=== PATIENT | female | born 1990 | race Caucasian/White ===

== ENCOUNTER → 2017-03-29 17:22 | Outpatient (CLI) | payer OTHER | END | disposition home or self-care (01) | LOC: RAD 17:22 | DX: M25.562 Pain in left knee (principal) ==

== ENCOUNTER 2017-07-16 07:38 | Outpatient (CLI) | payer OTHER | END 2017-07-16 07:42 | disposition home or self-care (01) | LOC: SONOGRAMA 07:38 → MAMO-SONO 07:45 | DX: Z01.419 Encounter for gynecological examination (general) (routine) without abnormal findings (principal); N64.4 Mastodynia ==